=== PATIENT | male | born 1970 | race Caucasian/White ===

== ENCOUNTER → 2020-02-20 16:07 | Outpatient (CLI) | payer BC, SELFPAY ==
[2020-02-21 08:59] LABS: Covid-19 Nasal PCR Sendout Lex DETECTED
--- NOTE | 2020-02-21 14:28 | PC.NURSE ---
John notified patient of positive COVID results and further isolation instructions.
== END ==
PROVIDERS: Visit Provider Internal Medicine Adolescent Medicine
DX: Z03.818 Encounter for observation for suspected exposure to other biological agents ruled out (principal)

== ENCOUNTER → 2020-03-05 10:40 | Outpatient (CLI) | payer BC, SELFPAY ==
[2020-03-06 08:45] LABS: Covid-19 Nasal PCR Sendout Lex NOT DETECTED
--- NOTE | 2020-03-06 09:36 | PC.NURSE ---
pt and notified of negative COVID 19 results.
== END ==
PROVIDERS: Visit Provider Internal Medicine Adolescent Medicine
DX: Z03.818 Encounter for observation for suspected exposure to other biological agents ruled out (principal)
CPT/HCPCS: U0003